=== PATIENT | female | born 1970 | race Caucasian/White ===

== ENCOUNTER 2020-06-26 00:35 | Day surgery (SDC) | payer OTHER, SELFPAY ==
[2020-06-21 16:18] VITALS: BMI 24.2
--- NOTE | 2020-06-21 16:43 | PC.NURSE ---
PT TESTED POSITIVE 05/25/2020 MILD SYMPTOMS -NO RESP. SYMPTOMS PT EMAILING DOCUMENTATION
[2020-06-26 08:41] VITALS: BP 114/65; PULSE 64; RESP 18; TEMP 36.6; O2SAT 100; BMI 24.4
[2020-06-26] MEDS: LACTATED RINGERS 1,000 ML 150 ML IV CONT (08:55)
--- NOTE | 2020-06-26 09:30 | WPDANESEPPF ---
Anes - Initial Pre Proc Eval Procedure: Operation Date: 06/26/20 10:00 Proposed Procedures p Screening Colonoscopy - Blane Mendez MD Date/Time: 06/26/20 09:30 Surgeon: Blane Mendez MD Pre Op Diagnosis: neoplasm screening Patient Data Age: 50 Gender: F Height: 5 ft 3 in Weight: 62.6 kg Last Vital Signs Temp 97.8 F 06/26/20 08:41 Pulse 64 06/26/20 08:41 Resp 18 06/26/20 08:41 BP 114/65 06/26/20 08:41 Pulse Ox 100 06/26/20 08:41 Allergies Allergy/AdvReac Type Severity Reaction Status Date / Time No Known Allergies Allergy Unknown Verified 06/26/20 08:36 Home Medications Medication Instructions Recorded Confirmed Type labetalol 200 mg tablet 200 mg PO Q12H 03/08/20 06/21/20 History lisinopril 20 mg tablet 20 mg PO DAILY 03/08/20 06/21/20 History methylphenidate HCl 54 mg 54 mg PO QAM 03/08/20 06/21/20 History tablet,extended release 24 hr multivitamin 1 tablet PO DAILY 03/08/20 06/21/20 History omega-3 fatty acids 1,000 mg 1,000 mg PO DAILY 03/08/20 06/21/20 History capsule psyllium husk (with sugar) 3 1 tbsp PO DAILY 03/08/20 06/21/20 History gram/7 gram oral powder turmeric 400 mg capsule 400 mg PO DAILY 03/08/20 06/21/20 History peg 3350-electrolytes 236 240 ml PO Q10M #4000 ml 03/13/20 Rx gram-22.74 gram-6.74 gram-5.86 gram solution omeprazole 20 mg PO DAILY 06/21/20 06/21/20 History Patient hx anesthesia problems: none Family hx anesthesia problems: none PMFSH Past Medical History Medical History (Updated 03/08/20 @ 11:53 by MITCHEL Johns) Encounter for screening colonoscopy GERD (gastroesophageal reflux disease) History of diverticulitis of colon Hypertension Overweight (BMI 25.0-29.9) Family History Family History Mother Family history of thyroid disease Sibling Hypertension Family history of elevated blood lipids Other Diabetes mellitus Social History Social History Smoking status: Never smoker Alcohol intake: current Drinks per week: 6 Substance use: never Substance use type: does not use Living arrangements: with family Spiritual care concerns: No Anes - Eval Final PreProcedure Day of Procedure 06/26/20 09:30 Patient weight: normal Heart: regular rate and rhythm Lungs: clear to auscultation Airway: Mallampati scale class II Neurological: alert and oriented Last oral intake: >/= 8 hours ASA classification: II Emergent: no Anesthetic plan: proceed Anesthesia type and monitoring: general GIVS and standard monitoring Informed Consent: The patient's anesthetic plan and its attendant risks and benefits were discussed with the patient/family/POA. Questions were solicited and answers provided to the satisfaction of the patient/family/POA.
--- NOTE | 2020-06-26 10:04 | PM.HPGS ---
History of Present Illness History of Present Illness Consent: Risks, benefits, and alternatives have been discussed and questions answered. Patient agrees to proceed with procedure. Chief complaint: neoplasm screening Narrative: Anita Mayorga is a 50 year old female here for screening, last colonoscopy 2010, also history of diverticulitis and rectal bleeding Review of Systems Constitutional: Constitutional: Denies headache(s) and Denies weakness Eyes: Eyes: Denies blurry vision ENT: Reports Normal hearing present, Denies headache(s) and Denies neck pain Cardiovascular: Cardiovascular: Denies chest pain and Denies dyspnea Respiratory: Respiratory: Denies dyspnea Gastrointestinal: Gastrointestinal: Reports no additional gastrointestinal complaints Genitourinary: Genitourinary: Denies dysuria Musculoskeletal: Musculoskeletal: Denies neck pain Integumentary/Breasts: Skin/Breast: Denies dry skin Neurologic: Reports Normal hearing present, Denies headache(s) and Denies weakness Psychiatric: Psychiatric: Denies anxiety Endocrine: Endocrine: Denies change in body appearance Hematologic/Lymphatic: Hematologic/Lymphatic: Denies easy bleeding Allergic/Immunologic: Allergic/Immunologic: Denies urticaria [facility] Past Medical History Medical History (Updated 03/08/20 @ 11:53 by DEANA JohnsN-C) Encounter for screening colonoscopy GERD (gastroesophageal reflux disease) History of diverticulitis of colon Hypertension Overweight (BMI 25.0-29.9) Family History Family History Mother Family history of thyroid disease Sibling Hypertension Family history of elevated blood lipids Other Diabetes mellitus Social History Social History Smoking status: Never smoker Alcohol intake: current Drinks per week: 6 Substance use: never Substance use type: does not use Living arrangements: with family Spiritual care concerns: No Meds Home Medications and Allergies Home Medications Medication Instructions Recorded Confirmed Type labetalol 200 mg tablet 200 mg PO Q12H 03/08/20 06/21/20 History lisinopril 20 mg tablet 20 mg PO DAILY 03/08/20 06/21/20 History methylphenidate HCl 54 mg 54 mg PO QAM 03/08/20 06/21/20 History tablet,extended release 24 hr multivitamin 1 tablet PO DAILY 03/08/20 06/21/20 History omega-3 fatty acids 1,000 mg 1,000 mg PO DAILY 03/08/20 06/21/20 History capsule psyllium husk (with sugar) 3 1 tbsp PO DAILY 03/08/20 06/21/20 History gram/7 gram oral powder turmeric 400 mg capsule 400 mg PO DAILY 03/08/20 06/21/20 History peg 3350-electrolytes 236 240 ml PO Q10M #4000 ml 03/13/20 Rx gram-22.74 gram-6.74 gram-5.86 gram solution omeprazole 20 mg PO DAILY 06/21/20 06/21/20 History Allergies Allergy/AdvReac Type Severity Reaction Status Date / Time No Known Allergies Allergy Unknown Verified 06/26/20 08:36 Vital Signs Vital Signs - 24 hr 06/26/20 08:41 Temperature 97.8 F Pulse Rate 64 Respiratory Rate 18 Blood Pressure 114/65 Pulse Oximetry 100 Exam Const: General: comfortable and no acute distress HENMT: General nose exam: Normal nares present Eyes: General: appearance normal, both eyes and all related structures Neck: Neck: no JVD Resp: Auscultation: clear to auscultation bilaterally Cardio: Rate: regular rate Rhythm: regular rhythm GI: Inspection: non-distended GI Palp: Yes Soft to palpation Skin: General skin exam: normal color Neuro: General: gait normal Speech: normal speech Extrem: General: normal to inspection Psych: Mental Status: mental status grossly normal Assessment and Plan Assessment and plan (1) Encounter for screening colonoscopy: Code(s): Z12.11 - Encounter for screening for malignant neoplasm of colon Status: Acute Assessment and Plan: will proceed with colonosco
[2020-06-26 10:28] VITALS: BP 94/54; PULSE 62; RESP 21; O2SAT 97
[2020-06-26 10:38] VITALS: BP 91/50; PULSE 63; RESP 16; O2SAT 98
[2020-06-26 10:48] VITALS: BP 104/57; PULSE 60; RESP 20; O2SAT 100
== END 2020-06-26 10:54 | disposition home or self-care (01) ==
PROVIDERS: PCP Family Medicine; Visit Provider Internal Medicine Gastroenterology
PROC: 0DJD8ZZ Inspection of Lower Intestinal Tract, Via Natural or Artificial Opening Endoscopic (ICD-10-PCS; CPT 45378; principal; 2020-06-26 10:00)
DX: Z12.11 Encounter for screening for malignant neoplasm of colon (principal); K57.30 Diverticulosis of large intestine without perforation or abscess without bleeding; K63.5 Polyp of colon; K64.8 Other hemorrhoids; Z98.0 Intestinal bypass and anastomosis status; Z87.19 Personal history of other diseases of the digestive system; Z90.49 Acquired absence of other specified parts of digestive tract; K21.9 Gastro-esophageal reflux disease without esophagitis; I10 Essential (primary) hypertension
CPT/HCPCS: 45385; 88305; J2704; J7120

== ENCOUNTER 2021-05-27 12:17 | Outpatient (CLI) | payer OTHER, SELFPAY ==
--- NOTE | ~2021-05-27 | XR_ITS ---
EXAMINATION: XR lg joint inject/asp w image DATE: 05/27/2021 13:00 INDICATION: Left hip pain. TECHNIQUE: A time-out was performed to verify the patient's name, date of , and procedure to b e performed. The procedure including the risks, benefits, and alternatives was discussed with the pat ient. Risks discussed included bleeding and infection. The patient understood the risks and agreed to proceed. The skin overlying the left hip joint was prepped and draped in usual sterile fashion. An esthetic was administered with 1% lidocaine subcutaneously. A 22 G needle was advanced under fluoros copic guidance into the joint. Injection of 1 mL of Omnipaque 240 confirmed intra-articular position of the needle. Subsequently, injectate consisting of 5 mL 1% lidocaine and 2 mL 10 mg/mL Kenalog wa s instilled. The needle was removed and the entry site was cleaned and dressed. There were no immed iate complications. Fluoroscopy exposure time was 0.1 minutes. The total number of images was 2. FINDINGS: Real-time fluoroscopy demonstrates the needle in the left hip joint. Patient's pain prior t o procedure:11/15. Patient's pain following the procedure: 11/15. IMPRESSION: 1. Fluoroscopy guided left hip joint injection of local anesthetic and steroid . Reviewed, dictated and finalized at location A. LATHE MACHINIST
== END 2021-05-27 12:18 | disposition home or self-care (01) ==
LOC: ANHIMG 12:20
PROVIDERS: PCP Family Medicine; Visit Provider Orthopaedic Surgery
DX: M25.552 Pain in left hip (principal)
CPT/HCPCS: 20610; 77002; J3301; Q9966

== ENCOUNTER 2023-12-30 11:02 | Outpatient (CLI) | payer OTHER, SELFPAY ==
--- NOTE | ~2023-12-30 | MR_ITS ---
EXAMINATION: MR shoulder LT wo con DATE: 12/30/2023 11:37 INDICATION: Pain in left shoulder . TECHNIQUE: Magnetic resonance imaging (MRI) of the left shoulder was performed without intravenous co ntrast. Sequences included axial PD-weighted FS FSE, coronal oblique PD-weighted FS FSE and T2-weight ed FS FSE, and sagittal oblique T2-weighted FS FSE and T1-weighted FSE. COMPARISON: None. FINDINGS: Coracoacromial arch: Mild anterolateral downsloping of the type I acromion. Mild acromial tip enthesopathy. No subcoracoid or subacromial narrowing. Rotator cuff: Partial-thickness tear of the bursal surface of the supraspinatus tendon near the musculotendinous ju nction, measuring at least 8 mm and involving approximately one half of the tendon thickness. Intrasu bstance type tear of the infraspinous. Full thickness perforation of the distal fibers of the infrasp inous near their insertion. Teres minor intact. Subscapularis is intact. Biceps tendon and glenoid labrum: Long head of biceps tendon intact. Mild degenerative change of the glenoid labrum without focal tear. Fluid: Moderate glenohumeral and subacromial subdeltoid bursal fluid Bones/cartilage: No suspicious focal or diffuse marrow signal. Mild degenerative change at the AC joint. Mild glenoid cartilage thinning. IMPRESSION: Partial-thickness bursal sided supraspinous tear. Focal perforating distal and intrasubstance type te ars of the infraspinatus. Moderate subacromial/subdeltoid fluid. Mild outlet compromise. Reviewed, dictated and finalized at location K. IMPRESSION: Partial-thickness bursal sided supraspinous tear. Focal perforating distal and intrasubstance type tears of the infraspinatus. Moderate subacromial/subdeltoid fluid. Mild outlet compromise.
== END 2023-12-30 11:03 ==
PROVIDERS: PCP Family Medicine; Visit Provider Orthopaedic Surgery
DX: M25.512 Pain in left shoulder (principal)
CPT/HCPCS: 73221

== ENCOUNTER 2025-03-02 01:50 | Day surgery (SDC) | payer OTHER, SELFPAY ==
[2024-12-07 10:15] VITALS: BMI 21.9
[2025-02-16 15:07] VITALS: BMI 21.9
--- OUTSIDE RECORDS SUMMARY | 2025-03-02 01:53 | XMS_ITS | Clinical Summary ---
Author Organization [facility] Address [address] [place] [address] Care Team Providers Care Portable Sawyer Name Role Phone Jeovany Moreau MD Primary Care Provider [phone] Allergies No known active allergies Medications No known medications Immunizations Immunization Administration Dates Next Due Tdap (Boostrix) 02/12/2022 Social History Tobacco Use Types Packs/Day Years Used Date Smoking Tobacco: Former Smokeless Tobacco: Never Alcohol Use Standard Drinks/Week Comments Yes 0 (1 standard drink = 0.6 oz pur e alcohol) Comments Unknown Sex and Gender Information Value Date Recorded Sex Assigned at Not on file Legal Sex Female 8:11 PM CDT Gender Identity Not on file Sexual Orientation Not on file Last Filed Vital Signs Vital Sign Reading Time Taken Comments Blood Pressure 132/62 02/12/2022 1:46 PM CDT Pulse 58 02/12/2022 1:46 PM CDT Temperature 36.8 C (98.2 F) 02/12/2022 1:46 PM CDT Respiratory Rate 16 02/12/2022 1:46 PM CDT Oxygen Saturation 98% 02/12/2022 1:46 PM CDT Inhaled Oxygen Concentration - - Weight 63.5 kg (140 lb) 02/12/2022 1:46 PM CDT Height 160 cm (5' 3) 02/12/2022 1:46 PM CDT Body Mass Index 24.8 02/12/2022 1:46 PM CDT Plan of Treatment Health Maintenance Due Date Last Done Comments Cervical Cancer Screening Pa p Smear (Age 30 to 64) Every 3 Years 1969 Colorectal Cancer Screening Colonoscopy (10 Years) 1969 Annual Physical 1972 Hepatitis C 1987 Hepatitis B Vaccines (1 of 3 - 19+ 3-dose series) 1988 Cervical Cancer Screening Pa p with HPV Testing (Age 30 to 64) Every 5 Years 1999 Cervical Cancer Screening with HPV 1999 Mammogram Screening 2009 Pneumococcal Vaccine: 50+ Ye ars (1 of 1 - PCV) 2019 Zoster Vaccines (1 of 2) 2019 COVID-19 Vaccine (2 - 2024-2 6 season) 2025 09/11/2020 DTaP, Tdap and Td Vaccines ( 2 - Td or Tdap) 02/13/2032 02/12/2022 Meningococcal B Vaccine Aged Out No l onger eligible based on patient's age to complete this topic Meningococcal Vaccine Aged Out No chuy love eligible based on patient's age to complete this topic RSV Immunizations Under 20 Months Aged Out No longer eligible based on patient's age to complete this topic Insurance [facility] Care Teams Portable Sawyer Relationship Specialty Start Date End Date Jeovany Moreau MD [address] [place] [address] PCP - General FAMILY PRACTICE 02/12/22
[2025-03-02 08:16] VITALS: BP 103/63; PULSE 70; RESP 14; TEMP 36.7; O2SAT 100; BMI 21.7
[2025-03-02] MEDS: LACTATED RINGERS 1,000 ML 150 ML IV CONT (08:44)
--- NOTE | 2025-03-02 09:18 | WPDANESEPPF ---
Anes - Initial Pre Proc Eval Procedure: Operation Date: 03/02/25 10:30 Proposed Procedures p Screening Colonoscopy - Karel Cortes MD Date/Time: 03/02/25 09:18 Surgeon: Karel Cortes MD Pre Op Diagnosis: Encounter for screening for malignant neoplasm of Patient Data Age: 54 Gender: F Height: 1.57 m Weight: 53.9 kg Last Vital Signs Temp 98.0 F 03/02/25 08:16 Pulse 70 03/02/25 08:16 Resp 14 03/02/25 08:16 BP 103/63 03/02/25 08:16 Pulse Ox 100 03/02/25 08:16 O2 Del Method Room Air 03/02/25 08:16 Allergies Allergy/AdvReac Type Severity Reaction Status Date / Time No Known Allergies Allergy Unknown Verified 03/02/25 08:25 Home Medications ?Medication ?Instructions ?Recorded ?Confirmed ?Type multivitamin 1 tablet PO DAILY 03/08/20 03/02/25 History omega-3 fatty acids 1,000 mg 1,000 mg PO DAILY 03/08/20 03/02/25 History capsule (Fish Oil Concentrate) psyllium husk (with sugar) 3 1 tbsp PO DAILY 03/08/20 03/02/25 History gram/7 gram oral powder (Daily Fiber (psyllium-sucrose)) labetalol 200 mg tablet See Rx Instructions .Route 08/19/24 03/02/25 Rx .COMPLEX #180 tabs omeprazole 20 mg capsule,delayed 20 mg PO DAILY #100 caps 08/19/24 03/02/25 Rx release zolpidem 10 mg tablet 10 mg PO QHS PRN insomnia 02/16/25 02/16/25 History lisinopril 20 mg tablet 20 mg PO BID 90 days #180 tabs 03/02/25 Rx Patient hx anesthesia problems: none Family hx anesthesia problems: none Results Review: All pre-operative results and documents have been reviewed as part of the pre-operative evaluation. [facility] Past Medical History Medical History Mixed hyperlipidemia Vitamin B deficiency Vitamin D deficiency Trigger thumb History of diverticulitis of colon Essential hypertension Insomnia Migraines ADHD Depression GERD (gastroesophageal reflux disease) Surgical History Surgical History S/P trigger finger release 11/05/2017 Revision R trigger thumb release 02/05/2018 S/P debridement 08/2014 left greater trochanteric bursitis with abductor repair S/P laparoscopic colectomy 08/29/2011 sigmoid colectomy History of hip surgery 09/10/2010 bone spur removal left hip H/O dilation and curettage 2000, miscarriage Family History Family History Mother Family history of thyroid disease Sibling Hypertension Family history of elevated blood lipids Other Diabetes mellitus Social History Social History Smoking status: Never smoker Alcohol intake: current Drinks per week: 6 Substance use: never Substance use type: does not use Do You Feel Safe in your Home?: Yes Lack of Transportation: No Lack of Food: Never True Current Housing: I Have Housing Concerned About Future Housing: No Difficulty Paying Gas/Electric Bills: YES Difficulty Paying for Meds: No Currently Unemployed: No Education: Trade/Vocational Certificate Difficulty w/ Childcare or Family Care: No Living arrangements: with family Occupation/Education: occupation Gender identity (if verbalized by the patient): Female Sexual Orientation (if Verbalized by the Patient): Straight or Heterosexual Spiritual care concerns: No Anes - Eval Final PreProcedure Day of Procedure 03/02/25 09:18 Patient weight: normal Lungs: normal air movement Airway: Mallampati scale class II Neurological: alert and oriented Last oral intake: >/= 8 hours ASA classification: II Emergent: no Anesthetic plan: proceed Anesthesia type and monitoring: general GIVS and standard monitoring Results Review: All pre-operative results and documents have been reviewed as part of the pre-operative evaluation. HTN. Informed Consent: The patient's anesthetic plan and its attendant risks and benefits were discussed with the patient/family/POA. Questions were solicited and answers provided to the satisfaction of the patient/family/POA.
--- NOTE | 2025-03-02 09:21 | PM.IMHP ---
H&P: HPI History of Present Illness Date/Time: 03/02/25 09:21 Chief Complaint: History of colon polyps Narrative: The patient has a history of colonic polyps, the last colonoscopy was 3 years ago. In addition, the patient underwent sigmoid resection for complicated diverticulitis more than 10 years ago. Review of Systems Review of Systems: All systems reviewed & are unremarkable except as noted in HPI and below PMFSH Past Medical History Medical History Mixed hyperlipidemia Vitamin B deficiency Vitamin D deficiency Trigger thumb History of diverticulitis of colon Essential hypertension Insomnia Migraines ADHD Depression GERD (gastroesophageal reflux disease) Surgical History Surgical History S/P trigger finger release 11/05/2017 Revision R trigger thumb release 02/05/2018 S/P debridement 08/2014 left greater trochanteric bursitis with abductor repair S/P laparoscopic colectomy 08/29/2011 sigmoid colectomy History of hip surgery 09/10/2010 bone spur removal left hip H/O dilation and curettage 1999, miscarriage Family History Family History Mother Family history of thyroid disease Sibling Hypertension Family history of elevated blood lipids Other Diabetes mellitus Social History Social History Smoking status: Never smoker Alcohol intake: current Drinks per week: 6 Substance use: never Substance use type: does not use Do You Feel Safe in your Home?: Yes Lack of Transportation: No Lack of Food: Never True Current Housing: I Have Housing Concerned About Future Housing: No Difficulty Paying Gas/Electric Bills: YES Difficulty Paying for Meds: No Currently Unemployed: No Education: Trade/Vocational Certificate Difficulty w/ Childcare or Family Care: No Living arrangements: with family Occupation/Education: occupation Gender identity (if verbalized by the patient): Female Sexual Orientation (if Verbalized by the Patient): Straight or Heterosexual Spiritual care concerns: No Meds Home Medications and Allergies Home Medications ?Medication ?Instructions ?Recorded ?Confirmed ?Type multivitamin 1 tablet PO DAILY 03/08/20 03/02/25 History omega-3 fatty acids 1,000 mg 1,000 mg PO DAILY 03/08/20 03/02/25 History capsule (Fish Oil Concentrate) psyllium husk (with sugar) 3 1 tbsp PO DAILY 03/08/20 03/02/25 History gram/7 gram oral powder (Daily Fiber (psyllium-sucrose)) labetalol 200 mg tablet See Rx Instructions .Route 08/19/24 03/02/25 Rx .COMPLEX #180 tabs omeprazole 20 mg capsule,delayed 20 mg PO DAILY #100 caps 08/19/24 03/02/25 Rx release zolpidem 10 mg tablet 10 mg PO QHS PRN insomnia 02/16/25 02/16/25 History lisinopril 20 mg tablet 20 mg PO BID 90 days #180 tabs 03/02/25 Rx Allergies Allergy/AdvReac Type Severity Reaction Status Date / Time No Known Allergies Allergy Unknown Verified 03/02/25 08:25 Vital Signs Vital Signs - 24 hr 03/02/25 08:16 Temperature 98.0 F Pulse Rate 70 Respiratory Rate 14 Blood Pressure 103/63 Pulse Oximetry 100 Oxygen Delivery Room Air Exam Const: General: cooperative and healthy appearing Resp: Effort & Inspection: normal respiratory effort and able to speak in complete sentences Auscultation: clear to auscultation bilaterally Cardio: Rate: regular rate Rhythm: regular rhythm GI: Inspection: normal to inspection GI Palp: No No hepatosplenomegaly present Auscultation: normal bowel sounds Rectal Exam: deferred Skin: General skin exam: normal color Psych: Appearance: grossly normal Mental Status: mental status grossly normal Assessment and Plan Assessment and plan (1) History of colonic polyps: Code(s): Z86.0100 - Personal history of colon polyps, unspecified Status: Acute Assessment and Plan: The patient is deemed a good candidate for the procedure. Consent signed. Will proceed.
--- NOTE | 2025-03-02 09:46 | S_PTH ---
PATIENT: Anita Mayorga LOC: [facility] U#:[id number] AGE/SX: 54/F ROOM: RE03/02/[address]: Karel Cortes MD : 1970 BED: DIS: 03/02/2025 SPEC #: [id number] RECD: 03/02/25 11:01 STATUS: VAHID RE #: [id number] JANI: 03/02/25 09:[address]: Karel Cortes DEPT: [facility] Surgical RECD BY: Kelsie Miller ENTERED: 03/02/25 11:01 SP TYPE: Surgical OTHR DR: Jeovany Moreau MD Tissues: A - Colon Polypectomy Procedures: Hematoxylin and Eosin Stain Gross and Microscopic Level 4
[2025-03-02 09:51] VITALS: BP 92/45; PULSE 77; RESP 18; O2SAT 100
[2025-03-02 10:01] VITALS: BP 102/35; PULSE 70; RESP 18; O2SAT 100
[2025-03-02 10:11] VITALS: BP 107/67; PULSE 67; RESP 18; O2SAT 100
== END 2025-03-02 10:25 | disposition home or self-care (01) ==
PROVIDERS: PCP Family Medicine; Visit Provider Internal Medicine Gastroenterology
PROC: 0DJD8ZZ Inspection of Lower Intestinal Tract, Via Natural or Artificial Opening Endoscopic (ICD-10-PCS; CPT 45378; principal; 2025-03-02 10:30)
DX: Z12.11 Encounter for screening for malignant neoplasm of colon (principal); D12.4 Benign neoplasm of descending colon; K64.4 Residual hemorrhoidal skin tags; K57.30 Diverticulosis of large intestine without perforation or abscess without bleeding; E78.2 Mixed hyperlipidemia; I10 Essential (primary) hypertension; K21.9 Gastro-esophageal reflux disease without esophagitis; E53.8 Deficiency of other specified B group vitamins; E55.9 Vitamin D deficiency, unspecified; G47.00 Insomnia, unspecified; F90.9 Attention-deficit hyperactivity disorder, unspecified type; F32.A Depression, unspecified; Z87.19 Personal history of other diseases of the digestive system; Z98.890 Other specified postprocedural states; Z90.49 Acquired absence of other specified parts of digestive tract
CPT/HCPCS: 45385; 88305; J2003; J2704; J7120